=== PATIENT | female | born 1935 | race Caucasian/White ===

== ENCOUNTER 2019-12-06 01:52 | Emergency (ER) | payer MEDICARE ==
[2019-12-06] MEDS ORDERED: Bacitracin Oint 1 GM U/D Packet TOP ONE (02:16)
--- NOTE | 2019-12-06 02:21 | EDM.PDOC ---
ED HPI GENERAL MEDICAL PROBLEM - General Chief Complaint: Laceration Stated Complaint: CUT TO NOSE Time Seen by Provider: 12/06/19 02:10 Source of Information: Reports: Patient, Family History Limitations: Reports: Other (no old records) - History of Present Illness INITIAL COMMENTS - FREE TEXT/NARRATIVE: 84 yo female fell in the darkness of her bedroom tonight incurring a skin tear of her R forearm, a bruise on her R hip(has been able to walk) and a laceration of her nose. No LOC or SANTAMARIA. Is here for evaluation and treatment. Onset: Today, Sudden Onset Date: 12/06/19 Duration: Minutes: Location: Reports: Face (nose), Upper Extremity, Right (forearm), Lower Extremity, Right (hip bruise) Quality: Reports: Dull Severity: Mild Improves with: Reports: None Worsens with: Reports: None Context: Reports: Trauma Associated Symptoms: Reports: No Other Symptoms Treatments DIRECTOR OF SLEEP: Reports: Other (see below) (wrap of R forearm) - Related Data Allergies Allergy/AdvReac Type Severity Reaction Status Date / Time acetaminophen [From Percocet] Allergy Syncope Verified 12/06/19 02:36 adhesive tape Allergy Blisters Verified 12/06/19 02:18 amlodipine Allergy Other Verified 12/06/19 02:18 aspirin [From Percodan] Allergy Syncope Verified 12/06/19 02:36 cephalexin Allergy Vomiting Verified 12/06/19 02:18 chlordiazepoxide Allergy Other Verified 12/06/19 02:18 ciprofloxacin Allergy Nausea Verified 12/06/19 02:18 diclofenac Allergy Nausea Verified 12/06/19 02:36 duloxetine Allergy Nausea Verified 12/06/19 02:36 egg Allergy Nausea Verified 12/06/19 02:36 esomeprazole Allergy Other Verified 12/06/19 02:36 fentanyl Allergy Agitation Verified 12/06/19 02:36 gabapentin Allergy Dizziness Verified 12/06/19 02:36 hydromorphone Allergy Other Verified 12/06/19 02:36 levofloxacin Allergy Nausea Verified 12/06/19 02:36 lovastatin Allergy Chest Pain Verified 12/06/19 02:36 meperidine Allergy Nausea Verified 12/06/19 02:36 morphine Allergy Delusions Verified 12/06/19 02:36 nabumetone Allergy Other Verified 12/06/19 02:36 naproxen Allergy Nausea Verified 12/06/19 02:36 nitrofurantoin Allergy Other Verified 12/06/19 02:36 nitroglycerin Allergy Hypotension Verified 12/06/19 02:36 ofloxacin Allergy Nausea Verified 12/06/19 02:36 omeprazole Allergy Hives Verified 12/06/19 02:36 oxaprozin Allergy Nausea Verified 12/06/19 02:36 oxycodone [From Percocet] Allergy Syncope Verified 12/06/19 02:36 Penicillins Allergy Hives Verified 12/06/19 02:36 propoxyphene Allergy Nausea Verified 12/06/19 02:36 rizatriptan Allergy Nausea Verified 12/06/19 02:36 simvastatin Allergy Other Verified 12/06/19 02:36 Sulfa (Sulfonamide Allergy Edema Verified 12/06/19 02:36 Antibiotics) sulindac Allergy Nausea Verified 12/06/19 02:36 sumatriptan Allergy Chest Pain Verified 12/06/19 02:36 tapentadol Allergy Nausea Verified 12/06/19 02:36 tetracycline Allergy Airway Verified 12/06/19 02:18 [From Achromycin] Tightness tramadol Allergy Nausea Verified 12/06/19 02:36 zolmitriptan Allergy Nausea Verified 12/06/19 02:36 Home Meds: Home Meds Albuterol [Ventolin HFA] 1 - 2 puff INH ASDIRECTED 12/06/19 [History] Allopurinol [Zyloprim] 100 mg PO DAILY 12/06/19 [History] Brinzolamide/Brimonidine Tart [Simbrinza 1%-0.2% Eye Drops] 1 drop EYELF BID 12/06/19 [History] Diclofenac Sodium [Voltaren 1% Gel] 1 applicful TRDERM ASDIRECTED 12/06/19 [History] Dicyclomine [Bentyl] 10 mg PO TID 12/06/19 [History] Fexofenadine [Fexofenadine HCl] 180 mg PO ASDIRECTED 12/06/19 [History] Latanoprost/Pf [Latanoprost 0.005% Eye Drop] 1 drop OP BEDTIME 12/06/19 [History] Levothyroxine 75 mcg PO ACBREAKFAST 12/06/19 [History] Losartan [Cozaar] 100 mg PO DAILY 12/06/19 [History] Metoprolol Succinate [Toprol XL 50mg] 50 mg PO BID 12/06/19 [History] Montelukast [Singulair] 10 mg PO DAILY 12/06/19 [History] Omeprazole 20 mg PO DAILY 12/06/19 [History] Salmeterol Xinafoate [Serevent Diskus] 2 puff INH DAILY 12/06/19 [History] Spironolactone [Aldactone] 25 mg PO DAILY 12/06/19 [History] Zolpidem Tartrate [Ambien] 10 mg PO BEDTIME 12/06/19 [History] atorvaSTATin [Lipitor] 10 mg PO BEDTIME 12/06/19 [History] dilTIAZem HCL [Diltiazem 24Hr ER (Cd)] 120 mg PO BID 12/06/19 [History] ED ROS GENERAL - Review of Systems Review Of Systems: See Below Constitutional: Reports: No Symptoms HEENT: Reports: No Symptoms Respiratory: Reports: No Symptoms Cardiovascular: Reports: No Symptoms GI/Abdominal: Reports: No Symptoms : Reports: No Symptoms Musculoskeletal: Reports: Other (tender lateral R hip area) Skin: Reports: Wound (skin tear R forearm, laceration nasal bridge area) Neurological: Reports: No Symptoms ED EXAM, SKIN/RASH Exam: See Below Exam Limited By: No Limitations General Appearance: Alert, WD/WN, No Apparent Distress Eye Exam: Bilateral Eye: Normal Inspection Ears: Normal External Exam, Normal Canal, Hearing Grossly Normal Nose: Normal Inspection, No Blood Throat/Mouth: Normal Lips, Normal Voice, No Airway Compromise Head: Other (nasal laceration) Neck: Normal Inspection, Supple, Non-Tender Respiratory/Chest: No Respiratory Distress, No Accessory Muscle Use Cardiovascular: No Edema Neurological: Alert, Oriented, CN II-XII Intact, Normal Cognition, No Motor/Sensory Deficits Psychiatric: Normal Affect, Normal Mood Skin: Warm, Dry, Normal Color, No Rash, Ecchymosis (R hip area), Wound/Incision (laceration of nasal bridge. ) Location, Skin: Face (nose) Characteristics: Linear Associated features: Tenderness. No: Induration, Lymphangitis ED SKIN PROCEDURES - Laceration/Wound Repair Face Appearance: Subcutaneous, Linear, Clean Distal NVT: Neuro & Vascular Intact, No Tendon Injury Anesthetic Type: Local Local Anesthesia - Lidocaine (Xylocaine): 1% Plain Skin Prep: Saline Saline Irrigation (cc's): 15 Exploration/Debridement/Repair: Wound Explored Closed with: Sutures Lac/Wound length In cm: 1.4 Suture Size: 6-0 # of Sutures: 6 Suture Type: Prolene, Interrupted, Simple, Mattress Drain Placement: No Sterile Dressing Applied: Nurse Tetanus Status Addressed: Yes Complications: No Course - Vital Signs Last Recorded V/S: Last Vital Signs Temp 36.8 C 12/06/19 02:19 Pulse 68 12/06/19 02:19 Resp 16 12/06/19 02:19 BP 144/63 H 12/06/19 02:19 Pulse Ox 98 12/06/19 02:19 - Orders/Labs/Meds Orders: Active Orders 24 hr Category Date Time Status Nasal Bone Min 3V [CR] Stat Exams 12/06/19 02:44 Taken Meds: Medications Discontinued Medications Generic Name Dose Route Start Last Admin Trade Name Freq PRN Reason Stop Dose Admin Bacitracin 2 dose 12/06/19 02:16 12/06/19 02:24 Bacitracin Oint 1 Gm TOP 12/06/19 02:17 2 dose ONETIME ONE Administration Bacitracin Confirm 12/06/19 03:13 Bacitracin Oint 1 Gm Administered 12/06/19 03:14 Dose 1 dose .ROUTE .STK-MED ONE Lidocaine HCl 5 ml 12/06/19 02:15 12/06/19 02:24 Xylocaine-Mpf 1% INJECT 12/06/19 02:16 5 ml ONETIME ONE Administration - Radiology Interpretation Free Text/Narrative:: nasal X-ray-neg Departure - Departure Time of Disposition: 03:35 Disposition: Home, Self-Care 01 Condition: Fair Clinical Impression: Nasal laceration Qualifiers: Encounter type: initial encounter Qualified Code(s): S01.21XA - Laceration without foreign body of nose, initial encounter Skin tear of forearm without complication Qualifiers: Encounter type: initial encounter Laterality: right Qualified Code(s): S51.811A - Laceration without foreign body of right forearm, initial encounter Contusion of hip, right Qualifiers: Encounter type: initial encounter Qualified Code(s): S70.01XA - Contusion of right hip, initial encounter - Discharge Information *PRESCRIPTION DRUG MONITORING PROGRAM REVIEWED*: No *COPY OF PRESCRIPTION DRUG MONITORING REPORT IN PATIENT JUSTIN: No Referrals: PCP,None [Primary Care Provider] - Forms: ED Department Discharge Additional Instructions: Clean wounds twice daily with either soap and water or 1/2 water and 1/2 peroxide. Dry. Apply antibiotic ointment and a new dressing. Recheck for signs of infection. Stitches out in 5-6 days. Acetaminophen as needed for pain relief. Sepsis Event Note (ED) - Focused Exam Vital Signs: Vital Signs Temp Pulse Resp BP Pulse Ox 12/06/19 02:19 36.8 C 68 16 144/63 H 98 12/06/19 02:08 36.8 C 68 16 144/63 H 98 - My Orders Last 24 Hours: My Active Orders 12/06/19 02:44 Nasal Bone Min 3V [CR] Stat - Assessment/Plan Last 24 Hours: My Active Orders 12/06/19 02:44 Nasal Bone Min 3V [CR] Stat
[2019-12-06] MEDS ORDERED: Bacitracin Oint 1 GM U/D Packet ONE (03:13)
--- NOTE | 2019-12-06 09:52 | CR ---
Nasal Bone Min 3V CLINICAL HISTORY: Trauma FINDINGS: There is minimal deformity at the tip of the nasal bones suggesting minimally displaced fracture. Nasal septum is midline. Anterior nasal spine appears intact. Paranasal sinuses show no air-fluid levels IMPRESSION: Probable fracture tip of the nasal bones
== END 2019-12-06 03:47 | disposition home or self-care (01) ==
LOC: JP.ED 01:52
DX: S01.21XA Laceration without foreign body of nose, initial encounter (principal); S51.811A Laceration without foreign body of right forearm, initial encounter; S70.01XA Contusion of right hip, initial encounter; Z79.899 Other long term (current) drug therapy; Z88.8 Allergy status to other drugs, medicaments and biological substances; Z88.0 Allergy status to penicillin; Z88.2 Allergy status to sulfonamides; Z88.1 Allergy status to other antibiotic agents; Z88.5 Allergy status to narcotic agent; Z91.012 Allergy to eggs; Z88.6 Allergy status to analgesic agent; Z91.048 Other nonmedicinal substance allergy status; W19.XXXA Unspecified fall, initial encounter; Y92.003 Bedroom of unspecified non-institutional (private) residence as the place of occurrence of the external cause
CPT/HCPCS: 12011; 70160; 99282; J2001